=== PATIENT | female | born 1940 | race Caucasian/White ===

== ENCOUNTER 2025-04-30 11:01 | Outpatient (AMB) | payer OTHER, SELFPAY ==
--- NOTE | 2025-04-30 11:09 | A.OFFPC_ITS ---
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 Required: No Is last menstrual period known: No Post menopausal: No Patient : No Allergies No Known Allergies Allergy (Verified 04/30/25 11:29) Medication List - Last Reconciled 04/30/25 by Golden Ervin CNP amoxicillin 2,000 mg PO .before dental appt apixaban (Eliquis) 5 mg PO BID atorvastatin (Lipitor) 20 mg PO DAILY brimonidine 0.2% 1 drp ophthalmic (eye) .2x a day cholecalciferol (vitamin D3) (PureVita Vitamin D3) 25 mcg PO DAILY digoxin 250 mcg PO DAILY diltiazem HCl CD (Cardizem CD) 180 mg PO DAILY iron-vit C-vit P38-eiwop acid 90 mg-120 mg-12 mcg-1,000 mcg tabs PO [id number]-wzi-uxscr 500 mcg- 750 mg (Nicotinamide (with chromium)) 1 tab PO DAILY losartan 50 mg PO DAILY Tobacco use date assessed: 04/30/25 Fall risk assessment: No Falls in past year Last assessed Fall Risk: 04/30/25 Dental Screening Dental Screen Date: 04/30/25 Did you have a dental visit in the last 12 months?: Yes Did you have a dental problem in the last 6 months where you did not have access to dental care?: No Was dental information given to patient?: Patient has dentist HPI HPI Comments History of Present Illness Details 84-year-old female presents to [facility] care. She admits to taking her medications as prescribed without adverse reactions. Prior PCP? - Dr. Rivera, [facility] Last office - 06/2024 Last visit/CPE/labs - Unknown Acute issue(s) - Reports daily fatigue for the past few months. 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 Does not vape. Drinks 1 gas s of wine daily. Denies recreational drug use - Has been making healthy dietary choice s. Exercises routinely. Generally sleep well Health maintenance - Last eye exam was [address] Marcela Martínez : She has an eye exam scheduled in May 2025 - Last dental visit was last month - Last tetanus vaccine was more than 10 years ago; declines Tdap vaccine today - Vaccinated shingles - Has not been vaccinated for PNA; encou raged to get vaccinated at the local pharmacy - Has not been vaccinated for the flu ; she plans on getting vaccinated - Last pap smear test was several years ago: Normal. She no longer performs pap smear test - Last mammogram was several years ago: Normal. She no longer performs mammogram - Last colonoscopy was several years ago : Normal. She no longer performs colonoscopy - Last dexa scan several years ago. Dexa scan ordered Specialists - [facility], Ophthalmology, Dr. Glass, [facility] Medical History (Updated 04/30/25 @ 12:15 by Golden Ervin CNP) Arthritis High cholesterol High blood pressure History of cardiac monitoring Surgical History (Updated 04/30/25 @ 11:29 by Noreen Mayfield MA) History of left hip replacement History of left knee replacement Family History (Updated 04/30/25 @ 11:31 by Noreen Mayfield MA) Brother Colon cancer Sister Uterine cancer, sarcoma Social History (Updated 04/30/25 @ 11:24 by Noreen Mayfield MA) Housing: House Patient Tobacco Use Status: Never used Tobacco e-Cigarette/Vaping Use: Never Used Second Hand Smoke Exposure: No service: No Current occupational status: retired Current occupational exposures/hazards: No Cognitive needs: No Hearing needs: Yes Vision needs: Yes Questionnaire PHQ-9 Over the last 2 weeks, how often have you been bothered by any of the following problems? 1. Little interest or pleasure in doing things: not at all 2. Feeling down, depressed, or hopeless: not at all 3. Trouble falling or staying asleep, or sleeping too much: not at all 4. Feeling tired or having little energy: several days 5. Poor appetite or overeating: not at all 6. Feeling bad about yourself - or that you are a failure or have let yourself or your family down: not at all 7. Trouble concentrating on things, such as reading the newspaper or watching te levision: not at all 8. Moving or speaking so slowly that other people could have noticed. Or the opposite - being so fidgety or restless that you have been moving around a lot more than usual: not at all 9. Thoughts that you would be better off or of hurting yourself in some way: not at all Total score: 1 Depression Screening Interpretation: Negative Depression Screening Done: Yes [id number] - PHQ-9 Billing: Yes Source: Developed by Drs. Andrea Ramirez, Jessy Meraz, Kash Rahman and colleagues, with an educational mamadou from [employer]. Thrive Questionnaire Date Thrive assessed: 04/25/25 I am a: Patient What is your living situation today?: I have a steady place to live Within the past 12 months, did the food you bought not last and you didn't have the money to get more?: I choose not to answer this question Within the past 12 months, did you worry whether your food would run out before you got money to buy more?: I choose not to answer this question Do you have trouble paying for medicines?: No Do you have trouble getting transportation to medical appointments?: No Do you have trouble paying your heating and electricity bill?: I choose not to answer this question Do you have trouble taking care of your child, family member or friend?: I choose not to answer this question Do you have trouble with day-to-day activities such as bathing, preparing meals, shopping, managing finances, etc.?: I choose not to answer this question Are you currently unemployed and looking for a job?: I choose not to answer this question Are you interested in more education?: I choose not to answer this question Please select the resources that you would like help with: None Currently or been in a relationship where the following occur: No concerns reported THRIVE Score: 0 AUDIT C Alcohol Use Questionnaire (AUDIT-C) 1. How often do you have a drink containing alcohol?: 4 or more times a week 2. How many drinks containing alcohol do you have on a typical day when you are drinking?: 1 or 2 3. How often do you have six or more drinks on one occasion?: Never Total Score: 4 Score Reviewed/Action Taken: Yes LORENA-7 AMB Questionnaire LORENA-7 Date LORENA - 7 assessed: 04/30/25 Feeling nervous, anxious, or on edge: 0 = Not at all Not being able to stop or control worryin = Not at all Worrying too much about different things: 0 = Not at all Trouble relaxin = Not at all Being so restless that it is hard to sit still: 0 = Not at all Becoming easily annoyed or irritable: 0 = Not at all Feeling afraid as if something awful might happen: 0 = Not at all Total LORENA-7 score (0-4 normal; 5-9 mild; 10-14 moderate; 15-21 severe): 0 Source: Developed by Drs. Andrea Ramirez, Jessy Meraz, Kash Rahman and colleagues, with an educational mamadou from [employer]. LORENA-7 Assessment Billing LORENA-7 Assessment Tool: LORENA-7 Assessment 69029 Review of Systems Const Details: Denies chills, Reports fatigue, Denies fever(s), Denies headache(s) and Denies weakness HEENT Denies change in vision, Denies dizziness, Denies headache(s), Denies hearing loss, Denies nasal congestion, Denies sinus pain, Denies sinus pressure and Denies sore throat Card Denies chest pain, Denies lightheadedness, Denies dyspnea and Denies other (palpitations) Resp Denies cough, Denies dyspnea and Denies wheezing GI Denies abdominal pain, Denies melena, Denies hematochezia, Denies change in bowel habits, Denies dyspepsia and Denies nausea Denies hematuria and Denies dysuria Musc Denies abnormal gait, Denies myalgias, Denies arthralgias, Denies numbness and Denies tingling Skin/Breast Denies rash, Denies unusual bruising and Denies wounds Neuro Denies abnormal gait, Denies dizziness, Denies headache(s), Denies memory loss, Denies numbness, Denies Sensory deficit (Neuro), Denies tingling and Denies weakness Psych Denies anxiety, Denies depression and Denies memory loss Endo Denies cold intolerance, Reports fatigue, Denies heat intolerance, Denies polydipsia and Denies polyuria Conner/Lymph Denies easy bleeding and Denies easy bruising Aller/Immun Denies wheezing Physical exam (Primary Care) Vital Signs: Last Vital Signs Temp 97.5 F 04/30/25 11:24 Pulse 63 04/30/25 11:24 Resp 16 04/30/25 11:24 BP 127/60 04/30/25 11:24 Pulse Ox 99 04/30/25 11:24 Oxygen Delivery Method Room Air 04/30/25 11:24 BMI result Body Mass Index 27.7 Tobacco/Smoking Status: Tobacco use Status Tobacco use date assessed 04/30/25 04/30/25 11:24 Patient Tobacco Use Status Never used Tobacco 04/30/25 11:24 e-Cigarette/Vaping Use Never Used 04/30/25 11:24 PHQ-9: PHQ-9 Score PHQ-9: Total score 1 04/30/25 11:32 Depression Screening Interpretation: Negative Thrive Assessment: Date of Thrive Assessment Date Thrive assessed 04/25/25 04/30/25 11:13 Currently or been in a relationship where the following occur: No concerns reported Const Other: General: no acute distress, well developed, alert and awake Nutritional Appearance: well nourished Orientation/consciousness: patient oriented x3 HENMT Head: Yes normocephalic and Yes atraumatic Ears: hearing grossly normal bilaterally and TM's normal bilaterally General nose exam: Normal external nose present and Normal nares present Mouth: Normal oral and palatal mucosa present and moist mucous membranes Teeth and gingiva: dentition normal Throat: Yes oropharynx normal Eyes Pupils: Equal, round and reactive pupils present and Pupil accommodation reflex normal EOM: EOMs intact bilaterally Neck Neck: Yes normal visual inspection, Yes no lymphadenopathy and Yes trachea midline Thyroid: Thyroid normal Carotids: no bruits Lymphatic: no lymphadenopathy noted Chest Chest palpation & inspection: normal inspection of the chest Resp Effort & Inspection: normal respiratory effort Auscultation: clear to auscultation bilaterally Cardio Rate: regular rate Rhythm: regular rhythm Heart sounds: S1 normal heart sound present, S2 normal heart sound present, no gallops, no murmurs and no rubs Bruits: no abdominal aortic bruits and no carotid bruits GI Palpation (GI): No Abdominal aortic bruit present, Soft to palpation, nontender, No hepatosplenomegaly present and No Rebound tenderness present Auscultation: normal bowel sounds General: Yes no CVA tenderness Back/Spine/Pelvis Back: no CVA tenderness Cervical Spine: cervical ROM normal and No Cervical spine tenderness Thoracic/Lumbar Spine: thoraco-lumbar ROM normal, No pain with thoraco-lumbar ROM, No thoracic spinal tenderness and No lumbar spinal tenderness Skin General: warm and dry. Normal skin color. Normal skin turgor Lesions: no lesions Rashes: no rashes Trauma: no lacerations or abrasions Wounds: no wounds Nails: normal Neuro General: patient oriented x3, gait normal and CN's II-XI intact bilaterally Cranial nerves: Yes Equal, round and reactive pupils present Cognition (Neuro): normal cognition Gait exam (Neuro): Normal gait present Motor exam (neuro): 5/5 motor strength present throughout Sensory Exam: No Sensory deficit (Neuro) Deep tendon reflexes (DTR's): Right patellar reflex intensity grade: 2+ and Left patellar reflex intensity grade: 2+ Extrem General: Yes normal to inspection, No edema and No calf tenderness Psych Appearance: grossly normal Affect: normal affect Attitude: cooperative Thought process: Normal thought process present Coding Level of Care Code New Pt Level 3 (75353) New Pt Prev Care >65yr (26932) Diagnoses Normal physical examination, routine Z00.00 Osteoporosis screening Z13.820 High blood pressure I10 Fatigue R53.83 Laboratory tests ordered as part of a complete physical exam (CPE) Z00.00 Additional Codes LORENA-7 Assessment Billing - LORENA-7 Assessment Tool: LORENA-7 Assessment 97257 ([id number]) PHQ-9 - 81331 - PHQ-9 Billing: Yes ([id number]) Assessment & Plan Assessment & Plan (1) Normal physical examination, routine: Code(s): Z00.00 - Encounter for general adult medical examination without abnormal findings Category: Medical Plan: No significant functional limitation noted. Continue current treatment regimen. Healthy diet and routine exercise encouraged. Perform lab work and follow-up for a telehealth visit for labs review in 2-4 weeks. Return sooner with symptoms or concerns. Verbalized understanding and agreed with plan. (2) Osteoporosis screening: Code(s): Z13.820 - Encounter for screening for osteoporosis Category: Medical Plan: Last dexa scan several years ago. Dexa scan ordered. (3) High blood pressure: Code(s): I10 - Essential (primary) hypertension Category: Medical Plan: Controlled. (4) Fatigue: Code(s): R53.83 - Other fatigue Category: Medical Plan: Reports daily fatigue for the past few months. Will check labs for anemia, vitamin-D deficiency, or hypothyroidism. Will review results and make changes as needed. Routine exercise encouraged. Verbalized understanding and agreed with the plan. (5) Laboratory tests ordered as part of a complete physical exam (CPE): Code(s): Z. - Encounter for general adult medical examination without abnormal findings Category: Medical Plan: Fasting labs ordered as part of a complete physical exam. Advised to fast for at least 10 hours before getting labs drawn. May drink water Verbalized understanding and agreed with treatment plan. Orders: Orders Complete Blood Count Auto Diff 04/30/25. - Encounter for general adult medical examination without abnormal findings Comprehensive [place]. Panel Fast 04/30/25 Z. - Encounter for general adult medical examination without abnormal findings Microalbumin, Random (w Creat) 04/30/25 Z. - Encounter for general adult medical examination without abnormal findings TSH reflex Free T4 04/30/25 Z. - Encounter for general adult medical examination without abnormal findings Vitamin D 25-OH Total 04/30/25. - Encounter for general adult medical examination without abnormal findings XR DEXA axial skeleton 04/30/25 M81.0 - Age-related osteoporosis without current pathological fracture Lipid Panel 04/30/25 Z. - Encounter for general adult medical examination without abnormal findings UA CC w/rflx Micro + Cult 04/30/25 Z. - Encounter for general adult medical examination without abnormal findings
[2025-04-30 11:24] VITALS: BP 127/60; PULSE 63; RESP 16; TEMP 36.4; O2SAT 99; BMI 27.7
== END 2025-04-30 12:12 | disposition home or self-care (01) ==
LOC: HO.HMCFM 11:02
PROVIDERS: PCP Nurse Practitioner Family; Visit Provider Nurse Practitioner Family
DX: Z00.00 Encounter for general adult medical examination without abnormal findings (principal); I10 Essential (primary) hypertension; R53.83 Other fatigue; Z13.820 Encounter for screening for osteoporosis

== ENCOUNTER → 2025-04-30 11:01 | Outpatient (BNVA) | payer OTHER, SELFPAY | PROVIDERS: PCP Nurse Practitioner Family; Visit Provider Nurse Practitioner Family | DX: Z00.00 Encounter for general adult medical examination without abnormal findings (principal); I10 Essential (primary) hypertension; R53.83 Other fatigue | CPT/HCPCS: 96127 ==

== ENCOUNTER → 2025-07-03 16:29 | Outpatient (AMB) | payer OTHER, SELFPAY ==
--- NOTE | 2025-07-03 14:45 | A.OFFPC_ITS ---
Intake Visit Reasons: 2-3 weeks telehealth labs Intake Note: patient here for 2-3 wks Telehealth follow up on labs review Eeg Tech Required: No Is last menstrual period known: No Post menopausal: No Patient : No Allergies No Known Allergies Allergy (Verified 07/03/25 16:23) Tobacco use date assessed: 07/03/25 Fall risk assessment: No Falls in past year Last assessed Fall Risk: 07/03/25 Dental Screening Dental Screen Date: 07/03/25 Did you have a dental visit in the last 12 months?: Yes Did you have a dental problem in the last 6 months where you did not have access to dental care?: No Was dental information given to patient?: Patient has dentist HPI HPI Comments History of Present Illness Details 84-year-old female presents for a tele[facility]eterans health administration visit for review of recent lab results. She admits to taking her medications as prescribed without adverse reactions. She has been taking vitamin D3 25 mcg daily. Reports intermittent burning with urination for the past 2 weeks. She has been applying baking soda to vaginal area with some relief. [facility] Medical History (Updated 07/03/25 @ 14:46 by Golden Ervin CNP) Arthritis High cholesterol High blood pressure History of cardiac monitoring Surgical History (Updated 04/30/25 @ 11:29 by TATYANA Casanova) History of left hip replacement History of left knee replacement Family History (Updated 04/30/25 @ 11:31 by TATYANA Casanova) Brother Colon cancer Sister Uterine cancer, sarcoma Social History (Updated 04/30/25 @ 11:24 by TATYANA Casanova) Housing: House Patient Tobacco Use Status: Never used Tobacco e-Cigarette/Vaping Use: Never Used Second Hand Smoke Exposure: No service: No Current occupational status: retired Current occupational exposures/hazards: No Cognitive needs: No Hearing needs: Yes Vision needs: Yes Questionnaire Thrive Questionnaire Date Thrive assessed: 04/25/25 I am a: Patient What is your living situation today?: I have a steady place to live Within the past 12 months, did the food you bought not last and you didn't have the money to get more?: I choose not to answer this question Within the past 12 months, did you worry whether your food would run out before you got money to buy more?: I choose not to answer this question Do you have trouble paying for medicines?: No Do you have trouble getting transportation to medical appointments?: No Do you have trouble paying your heating and electricity bill?: I choose not to answer this question Do you have trouble taking care of your child, family member or friend?: I choose not to answer this question Do you have trouble with day-to-day activities such as bathing, preparing meals, shopping, managing finances, etc.?: I choose not to answer this question Are you currently unemployed and looking for a job?: I choose not to answer this question Are you interested in more education?: I choose not to answer this question Please select the resources that you would like help with: None Currently or been in a relationship where the following occur: No concerns reported THRIVE Score: 0 LORENA-7 AMB Questionnaire LORENA-7 Date LORENA - 7 assessed: 04/30/25 Source: Developed by Drs. Andrea Ramirez, Jessy Meraz, Kash Rahman and colleagues, with an educational mamadou from [employer]. Review of Systems Const Details: Denies chills, Denies fatigue, Denies fever(s), Denies headache(s) and Denies weakness Cardiac Denies chest pain, Denies claudication, Denies leg edema, Denies lightheadedness, Denies palpitations, Denies dyspnea, Denies dyspnea on exertion, Denies orthopnea and Denies other (Loss of consciousness) Resp Denies cough, Denies excessive phlegm production, Denies dyspnea, Denies dyspnea on exertion, Denies snoring and Denies wheezing Physical exam (Primary Care) Tobacco/Smoking Status: Tobacco use Status Tobacco use date assessed 04/30/25 07/03/25 14:47 Patient Tobacco Use Status Never used Tobacco 07/03/25 14:47 e-Cigarette/Vaping Use Never Used 07/03/25 14:47 Thrive Assessment: Date of Thrive Assessment Date Thrive assessed 04/25/25 07/03/25 14:47 Currently or been in a relationship where the following occur: No concerns reported Const Other: Patient is alert and oriented x4 Telehealth Telehealth Telehealth Platform: Telephone Location of provider rendering services: practice address Location of patient: address on file Patient Identification confirmed using: Name, : Yes Telehealth method: voice only Patient verbally consented to treatment: Yes Patient verbally consented to billing insurance company: Yes Patient informed of any privacy concerns related to visit: Yes Coding Level of Care Code Tele Est Pt Level 3 (45073) Diagnoses Vitamin D deficiency E55.9 UTI (urinary tract infection) N39.0 Time Spent (min) 20 Assessment & Plan Assessment & Plan (1) Vitamin D deficiency: Code(s): E55.9 - Vitamin D deficiency, unspecified Category: Medical Plan: Recent vitamin-D level in 05/2025 is slightly low, 29.9. Vitamin D3 increased to 50 mcg daily; advised to take as prescribed. Advised to take increase vitamin D3 50 mcg daily. Follow-up in 2 months for transfer of care with a new provider within the practice. Return sooner with symptoms or concerns. Verbalized understanding and agreed with the plan. (2) UTI (urinary tract infection): Code(s): N39.0 - Urinary tract infection, site not specified Category: Medical Plan: UA/culture in 05/2022 have revealed UTI. Macrobid 100 mg twice daily x 5 days ordered; advised to take as prescribed. Adequate hydration encouraged. Advised to stop applying baking soda to vaginal area. Follow-up with symptoms or concerns. Verbalized understanding and agreed with the plan. Orders: Orders Vitamin D 25-OH Total 2 Months E55.9 - Vitamin D deficiency, unspecified Medications: New nitrofurantoin monohyd/m-cryst 100 mg (Macrobid) must administer with a meal/food 100 mg PO Q12H 10 caps 0RF 5 days
== END ==
LOC: HO.HMCFM 16:29
PROVIDERS: PCP Nurse Practitioner Family; Visit Provider Nurse Practitioner Family
DX: E55.9 Vitamin D deficiency, unspecified (principal); N39.0 Urinary tract infection, site not specified